=== PATIENT | female | born 1995 ===

== ENCOUNTER 2018-08-07 15:17 | Outpatient (REF) | payer MEDICAID, SELFPAY ==
[2018-08-07 19:56] LABS: HCT 41.4 % (36.0-46.0); HGB 13.8 g/dL (12.0-15.5); Mean Corp. HGB Concentration 33.3 g/dL (32.0-36.0); Mean Corpuscular Hemoglobin 29.8 pg (27.0-33.0); Mean Corpuscular Volume 89.4 fL (80-95); Mean Platelet Volume 10.2 fL (8.0-11.0); Platelet Count 344 x1000/uL (130-400); RBC 4.63 m/cumm (4.00-5.20); RBC Distribution Width 12.4 % (11.7-14.6); White Blood Cell Count 7.64 k/cumm (4.4-10.8)
[2018-08-07 20:07] LABS: Anion Gap 9.4 mmol/L (3-11); BUN 8 mg/dL (7-18); CO2 26.6 mmol/L (21.0-32.0); CREATININE 0.68 mg/dL (0.55-1.02); Calcium 8.5 mg/dL (8.5-10.1); Chloride 105 mmol/L (98-107); FREE T4 1.08 ng/dL (0.76-1.46); Glucose 83 mg/dL (70-100); Sodium 141 mmol/L (136-145); TSH 2.21 uIU/mL (0.358-3.74)
[2018-08-07 21:07] LABS: ESR 2 MM/HR (0-20)
[2018-08-08 16:17] LABS: CRP, High Sensitivity 0.27 mg/L
[2018-08-08 16:34] LABS: T3,Free 3.4 pg/ml (2.8-5.3)
[2018-08-11 13:31] LABS: ANA Interpretation Negative (NEGAT)
== END 2018-08-07 15:37 ==
LOC: NCHCN 15:17
PROVIDERS: PCP Nurse Practitioner Family; Visit Provider Nurse Practitioner Family
DX: R79.89 Other specified abnormal findings of blood chemistry (principal); R53.83 Other fatigue
CPT/HCPCS: 80048; 85027; 85652; 86141; 84439; 84443; 84481; 86038